=== PATIENT | male | born 1980 | race Caucasian/White ===

== ENCOUNTER 2022-03-19 08:17 | Emergency (ER) | payer BC ==
[~2022-03-19] VITALS: Ht 172.7 cm; Wt 106.8 kg
[2022-03-19] MEDS ORDERED: SODIUM CHLORIDE 0.9% 1,000 ML IV ONE (09:00)
[2022-03-19] MEDS ORDERED: CefTRIAXone 1 GM/DEXTROSE 50 ML IV ONE (09:00)
[2022-03-19 09:32] LABS: ANION GAP 6 mmol/L (8-16); CALCIUM, TOTAL 9.3 mg/dL (8.8-10.5); CARBON DIOXIDE 27 mmol/L (22-29); CHLORIDE 96 mmol/L (98-107); CREATININE 0.79 mg/dL (0.60-1.30); POTASSIUM 3.9 mmol/L (3.5-5.1); SODIUM SERUM 129 mmol/L (136-145); UREA NITROGEN, BLOOD 13 mg/dL (7-18)
[2022-03-19 09:35] LABS: GLOMERULAR FILTR. RATE CALC > 60 mL/min (>60); GLUCOSE,RANDOM 516 mg/dL (70-110)
[2022-03-19] MEDS ORDERED: INSULIN REGULAR, HUMAN 100 UNITS/ML IVP ONE (09:45)
[2022-03-19] MEDS ORDERED: METF-1211 PO (10:07)
[2022-03-19] MEDS ORDERED: DOXY50 PO (10:07)
[2022-03-19 11:16] LABS: GLUCOMETER DEV NAME(LOC) ERT.5; GLUCOSE,POINT OF CARE 297 MG/DL (70-110)
[2022-03-19 11:29] VITALS: BP 128/86
[2022-03-19] MEDS ORDERED: SULF-261 PO (11:55)
== END 2022-03-19 11:30 | disposition home or self-care (01) ==
LOC: EMS 08:17
DX: L02.811 Cutaneous abscess of head [any part, except face] (principal); L03.811 Cellulitis of head [any part, except face]; E11.65 Type 2 diabetes mellitus with hyperglycemia; Z88.0 Allergy status to penicillin; Z98.52 Vasectomy status
CPT/HCPCS: 99284; 96365; 96375; 80048; 82962; 36415; 82948; J0696; J1815

== ENCOUNTER 2022-04-01 08:55 | Emergency (ER) | payer BC ==
[~2022-04-01] VITALS: Ht 172.7 cm; Wt 104.5 kg
[~2022-04-01 08:55] MED LIST: DOXY50 PO; METF-1211 PO; SULF-261 PO
[2022-04-01] MEDS ORDERED: PERTUSS(ACELL),DIPH,TET VAC/PF 0.5 ML SYRINGE IM. ONE (12:00)
[2022-04-01 12:07] VITALS: BP 136/78
== END 2022-04-01 12:47 | disposition home or self-care (01) ==
LOC: EMS 08:56
DX: S61.412A Laceration without foreign body of left hand, initial encounter (principal); E11.9 Type 2 diabetes mellitus without complications; Z88.0 Allergy status to penicillin; Z98.52 Vasectomy status; W26.0XXA Contact with knife, initial encounter; Y93.89 Activity, other specified; Y92.89 Other specified places as the place of occurrence of the external cause; Y99.8 Other external cause status
CPT/HCPCS: 12002; 82962; 90471; 90715; 99283

== ENCOUNTER 2022-06-07 04:51 | Emergency (ER) | payer SELFPAY ==
[~2022-06-07] VITALS: Ht 172.7 cm; Wt 100.0 kg
[~2022-06-07 04:51] MED LIST changes: -DOXY50 PO; -SULF-261 PO
[2022-06-07 05:21] LABS: GLUCOMETER DEV NAME(LOC) ERT.5; GLUCOSE,POINT OF CARE 296 MG/DL (70-110)
[2022-06-07 05:32] LABS: COVID AG,FIA SOURCE NASAL SWAB
[2022-06-07 06:04] LABS: INFLUENZA TYPE A NEGATIVE FOR TYPE A (NEGATIVE); INFLUENZA TYPE B NEGATIVE FOR TYPE B (NEGATIVE)
[2022-06-07 06:56] VITALS: BP 148/92
== END 2022-06-07 07:02 | disposition home or self-care (01) ==
LOC: EMS 04:51
DX: J34.89 Other specified disorders of nose and nasal sinuses (principal); E11.9 Type 2 diabetes mellitus without complications; Z88.0 Allergy status to penicillin; Z20.822 Contact with and (suspected) exposure to COVID-19
CPT/HCPCS: 82962; 87804; 99283

== ENCOUNTER 2022-07-10 19:38 | Emergency (ER) | payer SELFPAY ==
[~2022-07-10] VITALS: Ht 172.7 cm; Wt 102.7 kg
[2022-07-10 19:55] VITALS: BP 157/92
== END 2022-07-10 21:17 | disposition home or self-care (01) ==
LOC: EMS 21:07
DX: S90.31XA Contusion of right foot, initial encounter (principal); E11.9 Type 2 diabetes mellitus without complications; Z88.0 Allergy status to penicillin; W19.XXXA Unspecified fall, initial encounter; Y93.89 Activity, other specified; Y92.89 Other specified places as the place of occurrence of the external cause; Y99.8 Other external cause status
CPT/HCPCS: 99283

== ENCOUNTER 2023-03-13 17:51 | Emergency (ER) | payer MEDICAID ==
[~2023-03-13] VITALS: Ht 172.7 cm; Wt 100.0 kg
[2023-03-13 17:59] VITALS: TEMP 98.4
[2023-03-13 18:55] LABS: APPEARANCE,URINE CLEAR (CLEAR); BILIRUBIN,URINE NEGATIVE (NEGATIVE); COLOR,URINE LIGHT YELLOW (YELLOW); GLUCOSE, URINE (UA) >=1000 mg/dL (NEGATIVE); KETONES,URINE NEGATIVE (NEGATIVE); LEUKOCYTE ESTERASE ,URINE NEGATIVE (NEGATIVE); NITRATE,URINE NEGATIVE (NEGATIVE); OCCULT BLOOD,URINE NEGATIVE (NEGATIVE); PH,URINE 5.5 (5.0-8.0); PROTEIN,URINE TRACE mg/dL (NEGATIVE); SPECIFIC GRAVITIY, URINE 1.037 (1.003-1.030); UROBILINOGEN,URINE <=1.0 mg/dL (<=1.0)
[2023-03-13 19:22] LABS: BACTERIA,URINE None Seen /HPF (None Seen); RBC,URINE None Seen /HPF (0-2); SQUAMOUS EPITHELIAL CELL,UR Rare /LPF (None Seen); WBC,URINE 0-2 /HPF (0-5)
[2023-03-13] MEDS ORDERED: SODIUM CHLORIDE 0.9% 1,000 ML IV ONE (19:30)
[2023-03-13 19:32] LABS: BASOPHILS % (AUTO) 0.8 % (0.0-2.0); EOSINOPHILS % (AUTO) 1.2 % (1.0-6.0); HEMATOCRIT 47.1 % (41-53); HEMOGLOBIN 16.3 g/dL (13.5-17.5); LYMPHOCYTES # (AUTO) 3.2 K/uL (1.0-4.8); LYMPHOCYTES % (AUTO) 36.5 % (22.0-44.0); MEAN CORPUSCULAR HEMOGLOBIN 29.7 pg (26.0-34.0); MEAN CORPUSCULAR HGB CONC 34.6 G/dL (31.0-37.0); MEAN CORPUSCULAR VOLUME 86 fL (80-100); MONOCYTES # (AUTO) 0.6 K/uL (0.1-1.0); MONOCYTES % (AUTO) 7.3 % (2.0-9.0); NEUTROPHILS # (AUTO) 4.7 K/uL (1.8-7.7); NEUTROPHILS % (AUTO) 54.2 % (40.0-70.0); PLATELET COUNT (AUTO) 227 K/uL (150-450); RED CELL DISTRIBUTION WIDTH 13.1 % (11.5-14.5); WHITE BLOOD COUNT (AUTO) 8.6 K/uL (4.5-11.0)
[2023-03-13 19:41] LABS: ANION GAP 6 mmol/L (8-16); CALCIUM, TOTAL 8.9 mg/dL (8.8-10.5); CARBON DIOXIDE 28 mmol/L (22-29); CHLORIDE 100 mmol/L (98-107); CREATININE 0.77 mg/dL (0.60-1.30); GLOMERULAR FILTR. RATE CALC > 60 mL/min (>60); GLUCOSE,RANDOM 339 mg/dL (70-110); POTASSIUM 3.9 mmol/L (3.5-5.1); SODIUM SERUM 134 mmol/L (136-145); UREA NITROGEN, BLOOD 23 mg/dL (7-18)
[2023-03-13 19:47] LABS: ALBUMIN 3.2 g/dL (3.4-5.0); ALKALINE PHOSPHATASE 110 U/L (46-116); BILIRUBIN,TOTAL 0.7 mg/dL (0.1-1.0); LIPASE 37 U/L (16-77); TOTAL PROTEIN, SERUM 6.9 g/dL (6.4-8.2)
[2023-03-13 19:58] LABS: ASPARTATE AMINOTRANSFERASE 10 U/L (15-37)
[2023-03-13 20:31] LABS: ALANINE AMINOTRANSFERASE 30 U/L (12-78)
[2023-03-13] MEDS ORDERED: HYDROCODONE/ACETAMINOPHEN 5-325 MG TABLET PO ONE (21:15)
[2023-03-13 22:00] VITALS: BP 134/81; PULSE 66; RESP 17
[2023-03-13] MEDS ORDERED: LIDO700A15 TP (22:10)
[2023-03-13] MEDS ORDERED: CYCL-448 PO (22:10)
== END 2023-03-13 22:19 | disposition home or self-care (01) ==
LOC: EMS 17:51
DX: M54.50 Low back pain, unspecified (principal); M10.9 Gout, unspecified; E11.9 Type 2 diabetes mellitus without complications; Z88.0 Allergy status to penicillin; Z98.890 Other specified postprocedural states
CPT/HCPCS: 99284; 74176; 96360; 80053; 81001; 83690; 85025; 36415; J7030

== ENCOUNTER 2024-03-18 14:54 | Emergency (ER) | payer MEDICAID ==
[~2024-03-18] VITALS: Ht 170.2 cm; Wt 98.2 kg
[~2024-03-18 14:54] MED LIST changes: +CYCL-448 PO; +LIDO700A15 TP
[2024-03-18 14:59] VITALS: TEMP 99.1
[2024-03-18 16:59] LABS: BASOPHILS % (AUTO) 0.7 % (0.0-2.0); EOSINOPHILS % (AUTO) 0.9 % (1.0-6.0); HEMATOCRIT 51.3 % (41-53); HEMOGLOBIN 17.7 g/dL (13.5-17.5); LYMPHOCYTES % (AUTO) 33.4 % (22.0-44.0); MEAN CORPUSCULAR HEMOGLOBIN 29.9 pg (26.0-34.0); MEAN CORPUSCULAR HGB CONC 34.4 G/dL (31.0-37.0); MEAN CORPUSCULAR VOLUME 87 fL (80-100); MONOCYTES # (AUTO) 0.6 K/uL (0.1-1.0); MONOCYTES % (AUTO) 6.8 % (2.0-9.0); NEUTROPHILS # (AUTO) 5.2 K/uL (1.8-7.7); NEUTROPHILS % (AUTO) 58.2 % (40.0-70.0); PLATELET COUNT (AUTO) 231 K/uL (150-450); RED CELL DISTRIBUTION WIDTH 13.3 % (11.5-14.5); WHITE BLOOD COUNT (AUTO) 8.9 K/uL (4.5-11.0)
[2024-03-18 17:00] LABS: APPEARANCE,URINE CLEAR (CLEAR); BILIRUBIN,URINE NEGATIVE (NEGATIVE); COLOR,URINE LIGHT YELLOW (YELLOW); GLUCOSE, URINE (UA) >=1000 mg/dL (NEGATIVE); KETONES,URINE NEGATIVE (NEGATIVE); LEUKOCYTE ESTERASE ,URINE NEGATIVE (NEGATIVE); NITRATE,URINE NEGATIVE (NEGATIVE); OCCULT BLOOD,URINE TRACE (NEGATIVE); PH,URINE 5.5 (5.0-8.0); PROTEIN,URINE TRACE mg/dL (NEGATIVE); UROBILINOGEN,URINE <=1.0 mg/dL (<=1.0)
[2024-03-18 17:10] LABS: ANION GAP 10 mmol/L (8-16); CALCIUM, TOTAL 8.9 mg/dL (8.8-10.5); CARBON DIOXIDE 27 mmol/L (22-29); CHLORIDE 97 mmol/L (98-107); CREATININE 0.82 mg/dL (0.60-1.30); GLOMERULAR FILTR. RATE CALC > 60 mL/min (>60); GLUCOSE,RANDOM 345 mg/dL (70-110); POTASSIUM 4.4 mmol/L (3.5-5.1); SODIUM SERUM 134 mmol/L (136-145); UREA NITROGEN, BLOOD 14 mg/dL (7-18)
[2024-03-18 17:13] LABS: BACTERIA,URINE Rare /HPF (None Seen); SQUAMOUS EPITHELIAL CELL,UR Few /LPF (None Seen); WBC,URINE 0-2 /HPF (0-5)
[2024-03-18 17:16] LABS: TROPONIN I-HIGH SENSITIVITY 7 ng/L (<76)
[2024-03-18 19:27] LABS: TROPONIN I-HIGH SENSITIVITY 7 ng/L (<76)
[2024-03-18] MEDS: INSULIN REGULAR, HUMAN 100 UNITS/ML IVP ONE (19:47)
[2024-03-18] MEDS: SODIUM CHLORIDE 0.9% 1,000 ML IV ONE (19:47)
[2024-03-18 20:00] LABS: GLUCOMETER DEV NAME(LOC) ERT.6; GLUCOSE,POINT OF CARE 294 MG/DL (70-110)
[2024-03-18] MEDS: KETOROLAC TROMETHAMINE 30 MG/ML VIAL IVP ONE (21:22)
[2024-03-18 22:11] VITALS: BP 132/89; PULSE 72; RESP 16; O2SAT 99
== END 2024-03-18 22:26 | disposition home or self-care (01) ==
LOC: EMS 14:54
DX: E11.65 Type 2 diabetes mellitus with hyperglycemia (principal); M79.661 Pain in right lower leg; M79.662 Pain in left lower leg; R53.1 Weakness; Z88.0 Allergy status to penicillin
CPT/HCPCS: 99284; 96374; 96361; 80048; 81001; 82962; 84484; 85025; 36415; 93005; J1885; J7030

== ENCOUNTER 2024-10-05 12:55 | Inpatient (IN) | payer MEDICAID ==
[~2024-10-05] VITALS: Ht 172.7 cm; Wt 100.6 kg
[2024-10-05] MEDS: AmLODIPine BESYLATE 10 MG TABLET PO ONE (15:10)
[2024-10-05] MEDS: ASPIRIN 325 MG TABLET PO ONE (15:10)
[2024-10-05] MEDS: SODIUM CHLORIDE 0.9% 2,000 ML IV ONE (15:11)
[2024-10-05] MEDS: INSULIN REGULAR, HUMAN 100 UNITS/ML IVP ONE (15:12)
[2024-10-05 15:25] LABS: ANION GAP 8 mmol/L (8-16); BASOPHILS % (AUTO) 1.2 % (0.0-2.0); CALCIUM, TOTAL 8.8 mg/dL (8.8-10.5); CARBON DIOXIDE 26 mmol/L (22-29); CHLORIDE 102 mmol/L (98-107); CREATININE 0.73 mg/dL (0.60-1.30); EOSINOPHILS % (AUTO) 1.3 % (1.0-6.0); GLOMERULAR FILTR. RATE CALC > 60 mL/min (>60); GLUCOSE,RANDOM 369 mg/dL (70-110); HEMATOCRIT 51.3 % (41-53); HEMOGLOBIN 17.3 g/dL (13.5-17.5); LYMPHOCYTES # (AUTO) 2.7 K/uL (1.0-4.8); LYMPHOCYTES % (AUTO) 34.1 % (22.0-44.0); MEAN CORPUSCULAR HEMOGLOBIN 29.1 pg (26.0-34.0); MEAN CORPUSCULAR HGB CONC 33.7 G/dL (31.0-37.0); MEAN CORPUSCULAR VOLUME 87 fL (80-100); MONOCYTES # (AUTO) 0.6 K/uL (0.1-1.0); NEUTROPHILS # (AUTO) 4.3 K/uL (1.8-7.7); NEUTROPHILS % (AUTO) 55.4 % (40.0-70.0); PLATELET COUNT (AUTO) 208 K/uL (150-450); RED BLOOD CELL COUNT(AUTO) 5.93 MIL/uL (4.50-5.90); RED CELL DISTRIBUTION WIDTH 13.3 % (11.5-14.5); SODIUM SERUM 136 mmol/L (136-145); UREA NITROGEN, BLOOD 17 mg/dL (7-18); WHITE BLOOD COUNT (AUTO) 7.8 K/uL (4.5-11.0)
[2024-10-05 15:38] LABS: LIPASE 45 U/L (16-77); TROPONIN I-HIGH SENSITIVITY 8 ng/L (<76)
[2024-10-05 16:07] LABS: ACETONE,BLOOD NEGATIVE (NEGATIVE)
[2024-10-05] MEDS ORDERED: HydrALAZINE HCL 10 MG TABLET PO PRN (16:15)
[2024-10-05] MEDS ORDERED: MAGNESIUM HYDROXIDE SUSPENSION 30 ML UDCUP PO PRN (16:15)
[2024-10-05] MEDS ORDERED: ZOLPIDEM TARTRATE 5 MG TABLET PO PRN (16:15)
[2024-10-05] MEDS ORDERED: DEXTROSE 50%-WATER 25 GM/50 ML SYRINGE IVP PRN (16:15)
[2024-10-05 16:20] LABS: GLUCOMETER DEV NAME(LOC) ERT.6; GLUCOSE,POINT OF CARE 157 MG/DL (70-110)
[2024-10-05] MEDS: MetFORMIN HCL 500 MG TABLET PO SCH (17:30)
[2024-10-05] MEDS: ACETAMINOPHEN 325 MG TABLET PO PRN (19:44)
[2024-10-05 20:08] VITALS: BP 174/98; PULSE 60; RESP 18; TEMP 97.7; O2SAT 100
[2024-10-05] MEDS: INSULIN LISPRO 100 UNITS/ML SQ PRN (20:43)
[2024-10-05] MEDS: LOSARTAN POTASSIUM 25 MG TABLET PO SCH (20:48)
[2024-10-05 20:50] LABS: GLUCOMETER DEV NAME(LOC) 5N.1D; GLUCOSE,POINT OF CARE 181 MG/DL (70-110)
[2024-10-05 21:00] VITALS: BP 174/98; PULSE 60; RESP 19; TEMP 97.7; O2SAT 100
[2024-10-05 22:38] LABS: APPEARANCE,URINE CLEAR (CLEAR); BILIRUBIN,URINE NEGATIVE (NEGATIVE); COLOR,URINE COLORLESS (YELLOW); GLUCOSE, URINE (UA) 300-500 mg/dL (NEGATIVE); KETONES,URINE NEGATIVE (NEGATIVE); LEUKOCYTE ESTERASE ,URINE NEGATIVE (NEGATIVE); NITRATE,URINE NEGATIVE (NEGATIVE); OCCULT BLOOD,URINE NEGATIVE (NEGATIVE); PH,URINE 6.5 (5.0-8.0); PH,URINE DRUG SCREEN 6.5 (5.0-8.0); PROTEIN,URINE NEGATIVE (NEGATIVE); UROBILINOGEN,URINE <=1.0 mg/dL (<=1.0)
[2024-10-05 22:47] LABS: AMPHET/METH SCREEN,URINE NEGATIVE (NEGATIVE); BARBITURATE SCREEN, URINE NEGATIVE (NEGATIVE); BENZODIAZEPINES SCREEN,URINE NEGATIVE (NEGATIVE); CANNABINOID SCREEN,URINE NEGATIVE (NEGATIVE); COCAINE SCREEN,URINE NEGATIVE (NEGATIVE); METHADONE SCREEN, URINE NEGATIVE (NEGATIVE); OPIATE SCREEN,URINE NEGATIVE (NEGATIVE); PHENCYCLIDINE SCREEN,URINE NEGATIVE (NEGATIVE)
[2024-10-05 22:50] LABS: ALCOHOL, URINE DRUG SCREEN NEGATIVE (NEGATIVE)
[2024-10-05 23:02] LABS: BACTERIA,URINE Rare /HPF (None Seen); RBC,URINE 0-2 /HPF (0-2); SQUAMOUS EPITHELIAL CELL,UR Rare /LPF (None Seen); WBC,URINE 0-2 /HPF (0-5)
[2024-10-06] VITALS: BP 155/135; PULSE 80; RESP 18; TEMP 97.9; O2SAT 98
[2024-10-06 00:08] VITALS: BP 155/135; PULSE 80; RESP 18; TEMP 97.9; O2SAT 98
[2024-10-06 04:00] VITALS: BP 139/90; PULSE 63; RESP 19; TEMP 98.1; O2SAT 99
[2024-10-06 06:45] LABS: GLUCOMETER DEV NAME(LOC) 5S.2D; GLUCOSE,POINT OF CARE 253 MG/DL (70-110)
[2024-10-06 07:44] VITALS: BP 139/83; PULSE 61; RESP 19; TEMP 98; O2SAT 99
[2024-10-06] MEDS: FAMOTIDINE 20 MG TABLET PO SCH (08:46)
[2024-10-06] MEDS: ASPIRIN 81 MG CHEWABLE TABLET PO SCH (08:46)
[2024-10-06] MEDS ORDERED: LOSA-381 PO (10:17)
[2024-10-06] MEDS ORDERED: METF-1211 PO (10:18)
[2024-10-06 10:20] VITALS: BP 136/78; PULSE 67; RESP 18; TEMP 98; O2SAT 98
[2024-10-06 11:51] LABS: GLUCOMETER DEV NAME(LOC) 5S.2D; GLUCOSE,POINT OF CARE 245 MG/DL (70-110)
== END 2024-10-06 13:20 | disposition home or self-care (01) | DRG 199 ==
LOC: EMS 12:55 → EDH 16:06 → 5S 20:21
PROVIDERS: ADMIT Internal Medicine; ATTEND Internal Medicine
DX: I16.0 Hypertensive urgency (principal); E11.9 Type 2 diabetes mellitus without complications; E66.9 Obesity, unspecified; I10 Essential (primary) hypertension; Z91.199 Patient's noncompliance with other medical treatment and regimen due to unspecified reason; Z68.33 Body mass index [BMI] 33.0-33.9, adult; Z79.899 Other long term (current) drug therapy; Z88.0 Allergy status to penicillin
CPT/HCPCS: 71045; 80048; 80307; 81001; 82009; 82962; 83690; 84484; 85025; 93005; 99285; G0378; J1815; 36415-L1; 36415-TC

== ENCOUNTER 2025-01-06 18:57 | Emergency (ER) | payer SELFPAY ==
[~2025-01-06] VITALS: Ht 172.7 cm; Wt 95.9 kg
[~2025-01-06 18:57] MED LIST changes: -CYCL-448 PO; -LIDO700A15 TP; +LOSA-381 PO
[2025-01-06 19:04] VITALS: TEMP 97.9
[2025-01-06 19:26] LABS: GLUCOMETER DEV NAME(LOC) ER.7; GLUCOSE,POINT OF CARE 298 MG/DL (70-110)
[2025-01-06 19:39] LABS: PLATELET COUNT (AUTO) 212 K/uL (150-450); RED BLOOD CELL COUNT(AUTO) 5.60 MIL/uL (4.50-5.90); RED CELL DISTRIBUTION WIDTH 13.4 % (11.5-14.5); WHITE BLOOD COUNT (AUTO) 7.2 K/uL (4.5-11.0)
[2025-01-06 19:45] LABS: CALCIUM, TOTAL 9.1 mg/dL (8.8-10.5); CREATININE 0.85 mg/dL (0.60-1.30); GLOMERULAR FILTR. RATE CALC > 60 mL/min (>60); GLUCOSE,RANDOM 357 mg/dL (70-110); SODIUM SERUM 139 mmol/L (136-145); UREA NITROGEN, BLOOD 16 mg/dL (7-18)
[2025-01-06 19:53] LABS: TROPONIN I-HIGH SENSITIVITY 7 ng/L (<76)
[2025-01-06] MEDS: SODIUM CHLORIDE 0.9% 1,000 ML IV ONE (21:30)
[2025-01-06] MEDS: INSULIN REGULAR, HUMAN 100 UNITS/ML IVP ONE (21:32)
[2025-01-06 21:49] LABS: TROPONIN I-HIGH SENSITIVITY 6 ng/L (<76)
[2025-01-06] MEDS ORDERED: METF-1211 PO (22:07)
[2025-01-06 22:46] LABS: GLUCOMETER DEV NAME(LOC) ERT.7; GLUCOSE,POINT OF CARE 194 MG/DL (70-110)
[2025-01-06 22:51] VITALS: BP 141/85; PULSE 67; RESP 18; O2SAT 98
== END 2025-01-06 23:16 | disposition home or self-care (01) ==
LOC: EMS 18:57
DX: M25.512 Pain in left shoulder (principal); E11.65 Type 2 diabetes mellitus with hyperglycemia; Z79.84 Long term (current) use of oral hypoglycemic drugs; Z88.0 Allergy status to penicillin; Z79.899 Other long term (current) drug therapy
CPT/HCPCS: 99285; 96374; 71045; 96361; 80048; 82962; 84484; 85025; 36415; 73030; 93005; J1815; J7030